=== PATIENT | male | born 1955 | race Caucasian/White ===

== ENCOUNTER 2018-01-26 14:53 | Inpatient (IN) | payer BC ==
[~2018-01-26] VITALS: Ht 193 cm; Wt 123.4 kg
[2018-01-26] VITALS (34 sets, daily range): BP systolic 87–151; BP diastolic 36–108
[2018-01-26] MEDS ORDERED: DILTIAZEM INJECTION 125 MG in NS (IVPB) 100 ML IV SCH (15:15)
[2018-01-26] MEDS ORDERED: ALPRAZolam 0.25 MG (XANAX) TAB PO PRN (15:15)
[2018-01-26] MEDS ORDERED: ACETAMINOPHEN 500 MG TAB (TYLENOL) PO PRN (15:15)
[2018-01-26] MEDS ORDERED: CALCIUM CARBONATE 500 MG (TUMS) TAB.CHEW PO PRN (15:15)
[2018-01-26] MEDS ORDERED: ONDANSETRON 4 MG/2 ML (SDV) Z0FRAN IVP PRN (15:15)
[2018-01-26] MEDS ORDERED: DOCUSATE SODIUM 100 MG (COLACE) CAP PO PRN (15:15)
--- OUTSIDE RECORDS SUMMARY | 2018-01-26 15:58 | XMS REPORT | Continuity of Care Document ---
Author Author [facility] Organization [facility] Address Unknown Phone Unavailable Allergies Active Description Code Type Severity Reaction Onset Reported/Identified Relationship to Patient Clinical Status Yes NO KNOWN DRUG ALLERGIES UNKNOWN NO KNOWN DRUG ALLERG Medications Medication Packaging Start Date Stop Date Route Dosage Sig DILTIAZEM BOLUS VIAL INJ 25 MG/5CC (CARDIZEM BOLUS VIAL) MG 01/26/2018 01/26/2018 ONCE&1403 DILTIAZEM BOLUS VIAL INJ 25 MG/5CC (CARDIZEM BOLUS VIAL) MG 01/26/2018 01/26/2018 ONCE&1412 Normal SALINE 0.9 % (NS 100cc) (plain bag) ml 01/26/2018 01/26/2018 ONCE&1418 ENOXAPARIN SYRINGE INJ 100 MG (LOVENOX SYRINGE) MG 01/26/2018 01/26/2018 ONCE&1500 Problems There is no data. Procedures There is no data. Results Test Result Range Thyroid Stimulating Hormone - 08/24/17 09:52 TSH 4.06 mIU/mL 0.32-5.00 EKG - 01/26/18 13:38 EKG Complete Thyroid Stimulating Hormone - 01/26/18 13:38 TSH 6.64 mIU/mL 0.32-5.00 Encounters ACCT No. Visit Date/Time Discharge Status Pt. Type Provider Facility Loc./Unit Complaint [id number] 09/12/2013 10:41:00 09/12/2013 23:59:59 CLS Outpatient [id number] 08/24/2017 09:52:00 08/24/2017 23:59:00 DIS Outpatient Amanda Dorman [id number] 01/26/2018 14:04:01 Document Registration [id number] 01/26/2018 13:30:00 Document Registration
[2018-01-26] MEDS ORDERED: CATHETER FLUSH 10 ML SYR IV PRN (16:00)
[2018-01-26] MEDS ORDERED: FLU QUADRIvalent (5+ YOA) 2018-2019 (AFLURIA) 0.5 ML IM ONE (16:45)
[2018-01-26 17:00] LABS: BASOPHILS % (AUTO) 0 % (0-10); EOSINOPHILS # (AUTO) 0.2 10^3/uL (0.0-0.3); EOSINOPHILS % (AUTO) 1 % (0-10); HEMATOCRIT 46 % (40-54); HEMOGLOBIN 15.2 G/DL (13.3-17.7); LYMPHOCYTES # (AUTO) 2.3 X 10^3 (1.0-4.0); LYMPHOCYTES % (AUTO) 16 % (12-44); MEAN CORPUSCULAR HEMOGLOBIN 28 PG (25-34); MEAN CORPUSCULAR HGB CONC 33 G/DL (32-36); MEAN CORPUSCULAR VOLUME 84 FL (80-99); MEAN PLATELET VOLUME 10.1 FL (7.4-10.4); MONOCYTES # (AUTO) 1.3 X 10^3 (0.0-1.0); MONOCYTES % (AUTO) 9 % (0-12); NEUTROPHILS # (AUTO) 10.6 X 10^3 (1.8-7.8); NEUTROPHILS % (AUTO) 73 % (42-75); PLATELET COUNT 294 10^3/uL (130-400); RED BLOOD COUNT 5.43 10^6/uL (4.35-5.85); RED CELL DISTRIBUTION WIDTH 13.6 % (10.0-14.5); WHITE BLOOD COUNT 14.4 10^3/uL (4.3-11.0)
[2018-01-26 17:16] LABS: ALANINE AMINOTRANSFERASE 27 U/L (0-55); ALBUMIN 4.1 GM/DL (3.2-4.5); ALKALINE PHOSPHATASE 95 U/L (40-136); BILIRUBIN,TOTAL 0.9 MG/DL (0.1-1.0); BUN/CREATININE RATIO 13; CALCIUM 9.5 MG/DL (8.5-10.1); CARBON DIOXIDE 23 MMOL/L (21-32); CHLORIDE 102 MMOL/L (98-107); CREATININE SERUM 1.08 MG/DL (0.60-1.30); GFR ESTIMATED > 60; GLUCOSE 109 MG/DL (70-105); POTASSIUM 4.3 MMOL/L (3.6-5.0); SODIUM 138 MMOL/L (135-145); TOTAL PROTEIN 7.2 GM/DL (6.4-8.2)
[2018-01-26 17:22] LABS: BAND NEUTROPHILS 0 %; BASOPHILS % (MANUAL) 0 %; EOSINOPHILS % (MANUAL) 1 %; LYMPHOCYTES % (MANUAL) 15 %; MONOCYTES % (MANUAL) 9 %; NEUTROPHILS % (MANUAL) 73 %; RBC MORPH NORMAL; REACTIVE LYMPHOCYTES 2 %
[2018-01-26] MEDS ORDERED: AMIODARONE 150 MG/3 ML (CORDARONE) AMP IV ONE ×2 (17:44→20:42)
[2018-01-26] MEDS ORDERED: D5W 100 ML IVPB 0 ML IV ONE (17:44)
[2018-01-26] MEDS ORDERED: AMIODARONE FOR BOLUS 150 MG in D5W 100 ML IVPB 100 ML IV NR (17:45)
[2018-01-26] MEDS: AMIODARONE INJECTION 450 MG in D5W IV SOLUTION (EXCEL) 250 ML IV SCH (18:11)
--- NOTE | 2018-01-26 18:33 | History & Physical-Hospitalist ---
History of Present Illness HPI/Chief Complaint CC: New onset atrial flutter HPI: This is a 62-year-old white male clinic patient of Dr. Dorman at [facility] who presented to ICU [address] [facility] due to new onset atrial flutter with consistent heart rate of 140. Apparently he's had fluttering in his chest before always a very brief episode not accompanied with chest pain or shortness of breath but on Tuesday he began feeling palpitations with chest pressure but he was having a chest cold and he went to bed on Tuesday could not get out of bed because of fatigue and shortness of breath and considering basketball season was about to start on Tuesday he went to the [facility] ER at Dr. Dorman's request and was found to have new onset atrial flutter. Dr. Coon has been consulted and Cardizem infusion has been unsuccessful so now we are currently changing over to an amiodarone drip. Currently he denies any shortness of breath no chest pain and overall feeling much better. His brother is at the bedside along with his . Source: patient, family, RN/MD Exam Limitations: no limitations Date Seen 01/26/18 Time Seen by a Provider: 18:30 Attending Physician Mena King DO PCP Mena King DO Referring Physician Date of Admission Jan 26, 2018 at 15:45 Home Medications & Allergies Home Medications Reviewed patient Home Medication Reconciliation performed by pharmacy medication reconciliations cdl service technician and/or nursing. Patients Allergies have been reviewed. Allergies Allergies Coded Allergies No Known Drug Allergies (Hpbqoscaud77/8/18) Past Homvuwj-Jlagny-Eaoyqb Hx Past Med/Social Hx: Reviewed Nursing Past Med/Soc Hx, Reviewed and Corrections made Patient Social History Marrital Status: Employed/Student: employed Alcohol Use: Occasionally Uses Number of Drinks Today: 0 Alcohol Beverage of Choice: Beer Recreational Drug Use: No Smoking Status: Never a Smoker Physical Abuse Screen: No Sexual Abuse: No Recent Foreign Travel: No Contact w/other who traveled: No Recent Hopitalizations: No Recent Infectious Disease Expo: No Seasonal Allergies Seasonal Allergies: No Past Medical History Hearing Impairment: Hard of Hearing Cancer: Prostate Did You Recieve Any Treatments: Yes What Type of Treatment Did You: Surgical Intervention History of Blood Disorders: No Family History FH: multiple sclerosis G8 BROTHER Myocardial infarction 19 FATHER UNCLE Neoplasm G8 BROTHER Review of Systems Constitutional: see HPI, malaise, weakness EENTM: no symptoms reported Respiratory: dyspnea on exertion, short of breath Cardiovascular: chest pain, palpitations Gastrointestinal: no symptoms reported Genitourinary: no symptoms reported Musculoskeletal: no symptoms reported Skin: no symptoms reported Psychiatric/Neurological: No Symptoms Reported All Other Systems Reviewed Negative Unless Noted: Yes Physical Exam Physical Exam Vital Signs Vital Signs - First Documented 01/26/18 01/26/18 01/26/18 15:50 15:55 16:00 Temp 100.0 Pulse 144 Resp 23 B/P (MAP) 141/97 (112) Pulse Ox 95 O2 Delivery Room Air Capillary Refill : Height, Weight, BMI Height: 6'4.00" Weight: 274lbs. 4.0oz. 124.421948ib; 33.4 BMI Method: General Appearance: No Apparent Distress, WD/WN Eyes: Bilateral Eye Normal Inspection, Bilateral Eye PERRL HEENT: PERRL/EOMI, TMs Normal, Normal ENT Inspection, Pharynx Normal Neck: Full Range of Motion, Normal Inspection, Non Tender, Supple, Carotid Bruit Respiratory: Chest Non Tender, Lungs Clear, Normal Breath Sounds, No Accessory Muscle Use, No Respiratory Distress Cardiovascular: No Edema, No Gallop, No JVD, No Murmur, Normal Peripheral Pulses, Irregularly Irregular, Tachycardia Gastrointestinal: Normal Bowel Sounds, No Organomegaly, No Pulsatile Mass, Non Tender, Soft Back: Normal Inspection, No CVA Tenderness, No Vertebral Tenderness Extremity: Normal Capillary Refill, Normal Inspection, Normal Range of Motion, Non Tender, No Calf Tenderness, No Pedal Edema Neurologic/Psychiatric: Alert, Oriented x3, No Motor/Sensory Deficits, Normal Mood/Affect Skin: Normal Color, Warm/Dry Lymphatic: No Adenopathy Results Results/Procedures Labs Laboratory Tests 01/26/18 16:52 Patient resulted labs reviewed. Assessment/Plan Admission Diagnosis Assessment: New onset atrial flutter failed Cardizem infusion now on amiodarone drip History of prostate cancer Presbycusis Plan: Amiodarone drip Appreciate Dr Coon's help Monitor closely Admission Status: Inpatient Order (span 2 midnights) Reason for Inpatient Admission: New onset atrial flutter will require 3 days of antiarrhythmics for control and possible cardioversion Diagnosis/Problems Diagnosis/Problems (1) Atrial flutter Status: Acute Qualifiers: Atrial flutter type: typical Qualified Codes: I48.3 - Typical atrial flutter Clinical Quality Measures DVT/VTE Risk/Contraindication: Risk Factor Score Per Nursin RFS Level Per Nursing on Admit: 3=High MENA KING DO Jan 26, 2018 18:33
[2018-01-26] MEDS ORDERED: MAGNESIUM 1 GM/100 ML IVPB 200 ML IV ONE (20:40)
[2018-01-26] MEDS ORDERED: D5W 100 ML IVPB 100 ML IV ONE (20:41)
[2018-01-26] MEDS ORDERED: AMIODARONE FOR BOLUS 150 MG in D5W 100 ML IVPB 100 ML IV ONE (21:00)
[2018-01-26] MEDS: APIXABAN 5 MG (ELIQUIS) TABLET PO SCH (21:08)
[2018-01-26] MEDS: CATHETER FLUSH 10 ML SYR IV SCH (21:14)
[2018-01-26] MEDS: MAGNESIUM 1 GM/100 ML IVPB 100 ML IV SCH ×2 (21:26→22:22)
[2018-01-27] VITALS (34 sets, daily range): BP systolic 99–145; BP diastolic 70–117
[2018-01-27] MEDS: AMIODARONE INJECTION 450 MG in D5W IV SOLUTION (EXCEL) 250 ML IV SCH (03:21)
[2018-01-27 03:58] LABS: BASOPHILS # (AUTO) 0.1 10^3/uL (0.0-0.1); BASOPHILS % (AUTO) 0 % (0-10); EOSINOPHILS # (AUTO) 0.2 10^3/uL (0.0-0.3); EOSINOPHILS % (AUTO) 2 % (0-10); HEMATOCRIT 44 % (40-54); HEMOGLOBIN 14.6 G/DL (13.3-17.7); LYMPHOCYTES % (AUTO) 18 % (12-44); MEAN CORPUSCULAR HEMOGLOBIN 28 PG (25-34); MEAN CORPUSCULAR HGB CONC 33 G/DL (32-36); MEAN CORPUSCULAR VOLUME 84 FL (80-99); MEAN PLATELET VOLUME 10.9 FL (7.4-10.4); MONOCYTES # (AUTO) 1.4 X 10^3 (0.0-1.0); MONOCYTES % (AUTO) 12 % (0-12); NEUTROPHILS # (AUTO) 7.6 X 10^3 (1.8-7.8); NEUTROPHILS % (AUTO) 68 % (42-75); PLATELET COUNT 280 10^3/uL (130-400); RED BLOOD COUNT 5.21 10^6/uL (4.35-5.85); RED CELL DISTRIBUTION WIDTH 13.7 % (10.0-14.5); WHITE BLOOD COUNT 11.2 10^3/uL (4.3-11.0)
[2018-01-27 04:31] LABS: ALANINE AMINOTRANSFERASE 23 U/L (0-55); ALBUMIN 3.7 GM/DL (3.2-4.5); ALKALINE PHOSPHATASE 91 U/L (40-136); BILIRUBIN,TOTAL 0.6 MG/DL (0.1-1.0); BUN/CREATININE RATIO 16; CALCIUM 8.9 MG/DL (8.5-10.1); CARBON DIOXIDE 23 MMOL/L (21-32); CHLORIDE 104 MMOL/L (98-107); CREATININE SERUM 0.96 MG/DL (0.60-1.30); GFR ESTIMATED > 60; GLUCOSE 102 MG/DL (70-105); POTASSIUM 4.2 MMOL/L (3.6-5.0); SODIUM 138 MMOL/L (135-145); TOTAL PROTEIN 6.4 GM/DL (6.4-8.2)
[2018-01-27] MEDS: CATHETER FLUSH 10 ML SYR IV SCH ×2 (04:32→14:04)
[2018-01-27 04:35] LABS: MAGNESIUM 2.2 MG/DL (1.8-2.4)
[2018-01-27] MEDS ORDERED: POTASSIUM CL 10MEQ/50ML IVPB 50 ML IV SCH (06:00)
[2018-01-27] MEDS ORDERED: KCL 20 MEQ TAB (K-DUR) PO SCH (06:00)
[2018-01-27] MEDS ORDERED: MAGNESIUM 1 GM/100 ML IVPB 100 ML IV SCH (06:00)
--- NOTE | 2018-01-27 06:12 | Pulmonary Consultation ---
History of Present Illness History of Present Illness Date of Consultation 01/27/18 06:10 Date of Admission Allergies and Home Medications Allergies Coded Allergies: No Known Drug Allergies (Unverified , 01/26/18) Past Jevbjcr-Yxxrrj-Nqhyma Hx Past Med/Social Hx: Reviewed Nursing Past Med/Soc Hx, Reviewed and Corrections made Patient Social History Alcohol Use: Occasionally Uses Number of Drinks Today: 0 Alcohol Beverage of Choice: Beer Recreational Drug Use: No Smoking Status: Never a Smoker Recent Foreign Travel: No Contact w/Someone Who Travel: No Recent Infectious Disease Expo: No Recent Hopitalizations: No Seasonal Allergies Seasonal Allergies: No Past Medical History Surgeries: Yes Respiratory: No Cardiac: No Neurological: No Genitourinary: No Gastrointestinal: No Musculoskeletal: No Endocrine: No HEENT: Yes Hearing Impairment: Hard of Hearing Cancer: Yes Prostate Did You Recieve Any Treatments: Yes What Type of Treatment Did You: Surgical Intervention Psychosocial: No Integumentary: No Blood Disorders: No Family Medical History FH: multiple sclerosis G8 BROTHER Myocardial infarction 19 FATHER UNCLE Neoplasm G8 BROTHER Sepsis Event Evaluation Height, Weight, BMI Height: 6'4.00" Weight: 274lbs. 4.0oz. 124.341667ec; 33.4 BMI Method: Exam Exam Vital Signs Date Time Temp Pulse Resp B/P (MAP) Pulse Ox O2 Delivery O2 Flow Rate FiO2 01/27/18 05:30 125 19 111/81 (91) 94 Room Air 01/27/18 05:15 125 19 106/75 (85) 92 Room Air 01/27/18 05:00 126 28 105/76 (86) 92 Room Air 01/27/18 04:45 128 24 108/83 (91) 95 Room Air 01/27/18 04:30 122 21 106/80 (89) 95 Room Air 01/27/18 04:15 121 18 116/93 (101) 95 Room Air 01/27/18 04:00 Room Air 01/27/18 04:00 121 21 119/92 (101) 97 Room Air 01/27/18 04:00 97.2 01/27/18 03:45 120 17 114/97 (103) 95 Room Air 01/27/18 03:30 125 14 127/91 (103) 95 Room Air 01/27/18 03:15 122 22 127/117 (120) 95 Room Air 01/27/18 03:00 126 26 120/97 (105) 94 Room Air 01/27/18 02:45 86 13 112/81 (91) 93 Room Air 01/27/18 02:30 110 9 113/89 (97) 92 Room Air 01/27/18 02:15 123 22 125/96 (106) 94 Room Air 01/27/18 02:00 122 25 118/92 (101) 94 Room Air 01/27/18 01:45 129 25 118/90 (99) 95 Room Air 01/27/18 01:30 128 26 111/83 (92) 94 Room Air 01/27/18 01:15 123 24 116/86 (96) 94 Room Air 01/27/18 01:00 94 01/27/18 01:00 94 19 109/84 (92) 94 Room Air 01/27/18 00:45 103 25 110/75 (87) 94 Room Air 01/27/18 00:30 93 19 103/72 (82) 93 Room Air 01/27/18 00:15 128 19 107/80 (89) 94 Room Air 01/27/18 00:00 Room Air 01/27/18 00:00 129 20 99/77 (84) 93 Room Air 01/27/18 00:00 99.1 01/26/18 23:45 125 17 96/73 (81) 93 Room Air 01/26/18 23:30 112 24 111/85 (94) 90 Room Air 01/26/18 23:15 103 17 104/78 (87) 93 Room Air 01/26/18 23:00 129 24 103/83 (90) 92 Room Air 01/26/18 22:45 129 28 87/61 (70) 92 Room Air 01/26/18 22:30 129 19 95/73 (80) 92 Room Air 01/26/18 22:15 129 28 98/80 (86) 92 Room Air 01/26/18 22:00 130 27 105/83 (90) 93 Room Air 01/26/18 21:45 130 24 118/90 (99) 95 Room Air 01/26/18 21:30 130 27 148/79 (102) 94 Room Air 01/26/18 21:15 130 26 113/92 (99) 95 Room Air 01/26/18 21:00 134 19 104/77 (86) 94 Room Air 01/26/18 20:45 135 26 101/72 (82) 94 Room Air 01/26/18 20:30 134 18 103/66 (78) 92 Room Air 01/26/18 20:15 137 17 102/90 (94) 93 Room Air 01/26/18 20:00 Room Air 01/26/18 20:00 138 21 126/94 (105) 93 Room Air 01/26/18 19:45 135 18 118/36 (63) 94 Room Air 01/26/18 19:30 140 21 120/98 (105) 96 Room Air 01/26/18 19:15 138 17 146/104 (118) 94 Room Air 01/26/18 19:05 99.3 80 16 117/73 (88) 94 Room Air 01/26/18 19:00 134 26 125/89 (101) 95 Room Air 01/26/18 18:59 135 01/26/18 18:45 134 22 126/96 (106) 96 Room Air 01/26/18 18:30 137 14 151/102 (118) 96 Room Air 01/26/18 18:15 141 25 145/106 (119) 95 Room Air 01/26/18 18:00 142 48 128/98 (108) 93 Room Air 01/26/18 17:45 142 18 97 Room Air 01/26/18 17:45 142 18 139/108 (118) 97 Room Air 01/26/18 17:30 141 19 131/104 (113) 96 Room Air 01/26/18 17:15 141 11 119/97 (104) Room Air 01/26/18 17:00 140 28 94/57 (69) Room Air 01/26/18 16:45 141 28 128/105 (113) 97 Room Air 01/26/18 16:35 140 18 130/102 (111) 98 Room Air 01/26/18 16:30 140 26 120/100 (107) 98 Room Air 01/26/18 16:26 99.4 01/26/18 16:15 140 13 116/88 (97) 98 Room Air 01/26/18 16:00 141 23 141/97 (112) 95 Room Air 01/26/18 15:55 144 01/26/18 15:50 100.0 01/26/18 15:45 96 Nasal Cannula 2.00 I & O 01/27/18 07:00 Intake Total 905 ml Output Total 1725 ml Balance -820 ml Height & Weight Height: 6'4.00" Weight: 274lbs. 4.0oz. 124.690081dg; 33.4 BMI Method: General Appearance: No Apparent Distress, WD/WN HEENT: PERRL/EOMI, TMs Normal, Normal ENT Inspection, Pharynx Normal Neck: Full Range of Motion, Normal Inspection, Non Tender, Supple, Carotid Bruit Respiratory: Chest Non Tender, Lungs Clear, Normal Breath Sounds, No Accessory Muscle Use, No Respiratory Distress Cardiovascular: No Edema, No Gallop, No JVD, No Murmur, Normal Peripheral Pulses, Irregularly Irregular, Tachycardia Extremity: Normal Capillary Refill, Normal Inspection, Normal Range of Motion, Non Tender, No Calf Tenderness, No Pedal Edema Neurologic/Psychiatric: Alert, Oriented x3, No Motor/Sensory Deficits, Normal Mood/Affect Skin: Normal Color, Warm/Dry Lymphatic: No Adenopathy Results Lab Laboratory Tests 01/26/18 16:52 01/27/18 02:55 Assessment/Plan Assessment/Plan New onset atrial flutter -failed Cardizem infusion now on amiodarone drip -Dr. Coon is following History of prostate cancer Presbycusis RUSTY PETTY DO Jan 27, 2018 06:12
--- NOTE | 2018-01-27 07:06 | Diagnostic Imaging Report ---
INDICATION: Heart disease and dyspnea. No prior examination available for comparison. FINDINGS: The heart size is normal. There are patchy bibasilar infiltrates. There is mild venous congestion. There is no pleural effusion or pneumothorax. Mediastinum is unremarkable. IMPRESSION: Patchy bibasilar infiltrates. Mild venous congestion. Dictated by: Dictated on workstation # [id number]
[2018-01-27] MEDS ORDERED: DILTIAZEM 120 MG (CARDIZEM CD) CAP PO SCH (09:00)
[2018-01-27] MEDS ORDERED: MULT-406 PO (09:08)
[2018-01-27] MEDS: APIXABAN 5 MG (ELIQUIS) TABLET PO SCH (09:42)
--- NOTE | 2018-01-27 10:29 | Progress Note-Hospitalist ---
REYNA HINOJOSA DO 01/27/18 1029: Subjective HPI/CC On Admission Date Seen by Provider: Jan 27, 2018 Time Seen by Provider: 10:15 CC: New onset atrial flutter HPI: This is a 62-year-old white male clinic patient of Dr. Dorman at [facility] who presented to ICU 7 from ER at [facility] due to new onset atrial flutter with consistent heart rate of 140. Apparently he's had fluttering in his chest before always a very brief episode not accompanied with chest pain or shortness of breath but on Tuesday he began feeling palpitations with chest pressure but he was having a chest cold and he went to bed on Tuesday could not get out of bed because of fatigue and shortness of breath and considering basketball season was about to start on Tuesday he went to the [facility] ER at Dr. Dorman's request and was found to have new onset atrial flutter. Dr. Coon has been consulted and Cardizem infusion has been unsuccessful so now we are currently changing over to an amiodarone drip. Currently he denies any shortness of breath no chest pain and overall feeling much better. His brother is at the bedside along with his . Subjective/Events-last exam Patient did well overnight Amio drip maintained and HR continued to increase to 140's at times Cardioversion planned for 1100 Objective Exam Vital Signs Vital Signs Date Time Temp Pulse Resp B/P (MAP) Pulse Ox O2 Delivery O2 Flow Rate FiO2 01/27/18 17:13 85 11 124/86 96 Room Air 2.00 01/27/18 16:15 97.8 Capillary Refill : General Appearance: No Apparent Distress, WD/WN Respiratory: Chest Non Tender, Lungs Clear, Normal Breath Sounds, No Accessory Muscle Use, No Respiratory Distress Cardiovascular: No Edema, No Gallop, No JVD, No Murmur, Normal Peripheral Pulses, Irregularly Irregular, Tachycardia Neurologic/Psychiatric: Alert, Oriented x3, No Motor/Sensory Deficits, Normal Mood/Affect Results/Procedures Lab Laboratory Tests 01/27/18 02:55 Patient resulted labs reviewed. Assessment/Plan Assessment and Plan Assess & Plan/Chief Complaint AF w/RVR Prostate cancer hx Diagnosis/Problems Diagnosis/Problems (1) Atrial flutter Status: Acute Qualifiers: Atrial flutter type: typical Qualified Codes: I48.3 - Typical atrial flutter Clinical Quality Measures DVT/VTE Risk/Contraindication: Risk Factor Score Per Nursin RFS Level Per Nursing on Admit: 3=High IZZY VILLA MED STUDENT 01/27/18 1127: Subjective Subjective/Events-last exam Patient is resting comfortably and reports no pain He is in good spirits and inquisitive of his condition Shortness of breath has resolved Patient is not experiencing chest discomfort Objective Exam General Appearance: No Apparent Distress, WD/WN Respiratory: Chest Non Tender, Lungs Clear, Normal Breath Sounds, No Accessory Muscle Use, No Respiratory Distress Cardiovascular: No Edema, No Gallop, No JVD, No Murmur, Tachycardia Neurologic/Psychiatric: Alert, Oriented x3, No Motor/Sensory Deficits, Normal Mood/Affect Skin: Normal Color, Warm/Dry Assessment/Plan Assessment and Plan Assess & Plan/Chief Complaint Assessment: 1) New onset atrial flutter Plan: 1) Monitor in the ICU 2) 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
[2018-01-27] MEDS ORDERED: LIDOCAINE 2% VISCOUS 15 ML UDC PO ONE ×2 (10:30→11:45)
[2018-01-27] MEDS ORDERED: NS IV 500 ML 500 ML IV SCH ×2 (10:30→11:45)
[2018-01-27] MEDS ORDERED: proPOfol 200 MG/20 ML (DIPRIVAN) VIAL IV ONE (10:51)
[2018-01-27] MEDS ORDERED: MIDAZOLAM 2 MG/2 ML (VERSED) VIAL ONE (10:51)
[2018-01-27] MEDS ORDERED: LIDOCAINE 2% VISCOUS 15 ML UDC ONE (11:06)
--- NOTE | 2018-01-27 11:34 | Consultation-Cardiology ---
HPI-Cardiology Cardiology Consultation: Date of Consultation 01/27/18 Date of Admission Attending Physician Mena King DO Admitting Physician Mena King DO Consulting Physician Theron COON MD HPI: Time Seen by a Provider: 10:45 Chief Complaint: Chest pain, shortness of breath, fatigue This is a 62-year-old gentleman who is a patient of Dr. Dorman in [facility]. He has history of hypertension. He denies diabetes, hyperlipidemia, CAD. He denies active smoking. He does have family history of VA in the father and pacemaker in the mother. He presented to Dr. Dorman's office with complains of chest pain, shortness of breath and fatigue at least since Tuesday which was 2 days ago. He was found to be in rapid tachycardia and therefore sent to the ER. In the ER he was found to have atrial flutter with rapid ventricular rate. His rate was not responsive to Cardizem bolus and infusion. He was therefore transferred to our hospital for further management. Review of Systems-Cardiology Review of Systems Constitutional: As described under HPI; No As described under HPI, No no symptoms reported, No chills, No fever, No lightheadedness; tiredness Eyes: No As described under HPI, No no symptoms reported, No blindness, No blurred vision, No contact lenses, No drainage, No decreased acuity, No foreign body sensation, No pain, No vision change Ears/Nose/Throat: No As described under HPI, No no symptoms reported, No chronic hearing loss, No ear discharge, No ear pain, No nasal drainage, No ulcerations Respiratory: No no symptoms reported; As described under HPI; No As described under HPI, No cough, No orthopnea; shortness of breath; No SOB with excertion Cardiovascular: No no symptoms reported; As described under HPI; No As described under HPI; chest pain; No edema, No irregular heart rate, No lightheadedness, No palpitations Gastrointestinal: No no symptoms reported, No As described under HPI, No abdomen distended, No abdominal pain, No blood streaked bowels, No constipation , No diarrhea, No nausea, No vomiting, No stool coloration changes Genitourinary: No As described under HPI, No burning, No dysuria, No discharge , No frequency, No flank pain, No hematuria, No urgency Musculoskeletal: No no symptoms reported, No As describe under HPI, No back pain, No gout, No joint pain, No joint swelling, No muscle pain, No muscle stiffness, No neck pain, No other Skin: No no symptoms reported, No As described under HPI, No change in color, No change in hair/nails, No dryness, No lesions, No lumps, No rash, No other, No skin related problems, No ulcerations, No rash on exposed areas, No ulcerations on exposed areas Psychiatric/Neurological: No anxiety, No depression, No seizure, No focal weakness, No syncope Hematologic: No no symptoms reported, No As described under HPI, No anemia, No blood clots, No easy bleeding, No easy bruising, No swollen glands, No other, No bleeding abnormalities All Other Systems Reviewed Negative Unless Noted: Yes [id number]-[id number] Hx Patient Social History Marrital Status: Employed/Student: employed Alcohol Use: Occasionally Uses Recreational Drug Use: No Smoking Status: Never a Smoker Recent Foreign Travel: No Recent Infectious Disease Expo: No Physical Abuse Screen: No Sexual Abuse: No Past Medical History PMH As described under Assessment. Family Medical History Family History: FH: multiple sclerosis G8 BROTHER Myocardial infarction 19 FATHER UNCLE Neoplasm G8 BROTHER Allergies and Home Medications Allergies Coded Allergies: No Known Drug Allergies (Unverified , 01/26/18) Home Medications Multivitamin with Minerals 1 Each Tablet, 1 TAB PO DAILY, (Reported) Patient Home Medication List Home Medication List Reviewed: Yes Physical Exam-Cardiology Physical Exam Vital Signs/I&O 01/26/18 01/27/18 01/27/18 01/27/18 23:45 00:00 00:00 00:00 Temp 99.1 Pulse 125 129 Resp 17 20 B/P (MAP) 96/73 (81) 99/77 (84) Pulse Ox 93 93 O2 Delivery Room Air Room Air Room Air 01/27/18 01/27/18 01/27/18 01/27/18 00:15 00:30 00:45 01:00 Pulse 128 93 103 94 Resp 19 19 25 19 B/P (MAP) 107/80 (89) 103/72 (82) 110/75 (87) 109/84 (92) Pulse Ox 94 93 94 94 O2 Delivery Room Air Room Air Room Air Room Air 01/27/18 01/27/18 01/27/18 01/27/18 01:00 01:15 01:30 01:45 Pulse 94 123 128 129 Resp 25 B/P (MAP) 116/86 (96) 111/83 (92) 118/90 (99) Pulse Ox 94 94 95 O2 Delivery Room Air Room Air Room Air 01/27/18 01/27/18 01/27/18 01/27/18 02:00 02:15 02:30 02:45 Pulse 122 123 110 86 Resp 22 9 13 B/P (MAP) 118/92 (101) 125/96 (106) 113/89 (97) 112/81 (91) Pulse Ox 94 94 92 93 O2 Delivery Room Air Room Air Room Air Room Air 01/27/18 01/27/18 01/27/18 01/27/18 03:00 03:15 03:30 03:45 Pulse 126 122 125 120 Resp 14 17 B/P (MAP) 120/97 (105) 127/117 (120) 127/91 (103) 114/97 (103) Pulse Ox 94 95 95 95 O2 Delivery Room Air Room Air Room Air Room Air 01/27/18 01/27/18 01/27/18 01/27/18 04:00 04:00 04:00 04:15 Temp 97.2 Pulse 121 121 Resp 18 B/P (MAP) 119/92 (101) 116/93 (101) Pulse Ox 97 95 O2 Delivery Room Air Room Air Room Air 01/27/18 01/27/18 01/27/18 01/27/18 04:30 04:45 05:00 05:15 Pulse 122 128 126 125 Resp 19 B/P (MAP) 106/80 (89) 108/83 (91) 105/76 (86) 106/75 (85) Pulse Ox 95 95 92 92 O2 Delivery Room Air Room Air Room Air Room Air 01/27/18 01/27/18 01/27/18 01/27/18 05:30 05:45 06:00 07:00 Pulse 125 124 123 122 Resp 18 B/P (MAP) 111/81 (91) 103/73 (83) 104/89 (94) 134/98 (110) Pulse Ox 94 93 92 94 O2 Delivery Room Air Room Air Room Air Room Air 01/27/18 01/27/18 01/27/18 01/27/18 07:00 07:00 08:00 08:00 Temp 98.0 Pulse 112 130 Resp 21 B/P (MAP) 121/90 (100) Pulse Ox 97 O2 Delivery Room Air Room Air 01/27/18 01/27/18 01/27/18 09:00 10:00 11:00 Pulse 126 130 126 Resp 24 31 16 B/P (MAP) 145/102 (116) 105/79 (88) 126/101 (109) Pulse Ox 94 98 98 O2 Delivery Room Air Room Air Room Air 01/27/18 00:00 Intake Total 646 ml Output Total 1125 ml Balance -479 ml Capillary Refill : Constitutional: appears stated age, AAO x 3; No apparent distress; well- developed, well-nourished HEENT: PERRL; No normal ENT inspection, No TMs normal, No pharynx normal, No scleral icterus (R), No scleral icterus (L), No pale conjunctivae (R), No pale conjunctivae (L), No photophobia, No TM abnormal (R), No TM abnormal (L), No pharyngeal erythema, No tonsillar exudate, No other, No discharge, No EOMI; hearing is well preserved; No hard of hearing; oral hygience is good; No ulceration, No xanthelasmas are seen Neck: No carotid bruit; carotid pulses are 2 + bilaterally Respiratory: No accessory muscle use, No respiratory distress, No chest tender , No chest expansion is symmetric; chest is bilaterally symmetric; No lungs clear to percussion; lungs clear to auscultation; No crackles, No rhonchi, No rales, No stridor, No wheezing, No pleural rub, No other Cardiovascular: No regular rate-rhythm; irregularly irregular; No extra beats, No parasternal heave is noted, No JVD, No edema, No bradycardia; tachycardia; No point of maximal impulse, No cardiac thrills are palpable, No S1 and S2, No gallop/S3, No gallop/S4, No diastolic murmur, No systolic murmur, No friction rub, No click, No other Gastrointestinal: No tender, No soft, No round, No distended, No pulsatile mass , No organomegaly, No guarding, No rebound, No tenderness, No hernia, No mass, No audible bowel sounds, No abnormal bowel sounds, No abdominal bruits, No spleenomegaly, No other Rectal: deferred Extremities: No normal range of motion, No non-tender, No normal inspection, No pedal edema, No calf tenderness, No normal capillary refill, No pelvis stable , No calf tenderness, No inflammation, No pedal edema, No slow capillary refill , No swelling, No other, No abrasion, No clubbing, No cyanosis, No ecchymosis, No laceration, No no lower extremity edema bilateral, No significant edema, No tenderness, No wound Neurologic/Psychiatric: no motor/sensory deficits, alert, normal mood/affect, oriented x 3, power is 5/5 both on sides Skin: No normal color, No warm/dry, No cyanosis, No cool, No diaphoresis, No damp, No ecchymosis, No jaundice, No mottled, No pallor, No rash, No tattoos/ piercings, No ulcerations, No rash on exposed areas, No ulcerations on exposed areas, No other Data Review Labs Laboratory Tests 01/26/18 16:52: White Blood Count 14.4H, Red Blood Count 5.43, Hemoglobin 15.2, Hematocrit 46, Mean Corpuscular Volume 84, Mean Corpuscular Hemoglobin 28, Mean Corpuscular Hemoglobin Concent 33, Red Cell Distribution Width 13.6, Platelet Count 294, Mean Platelet Volume 10.1, Neutrophils (%) (Auto) 73, Lymphocytes (%) (Auto) 16 , Monocytes (%) (Auto) 9, Eosinophils (%) (Auto) 1, Basophils (%) (Auto) 0, Neutrophils # (Auto) 10.6H, Lymphocytes # (Auto) 2.3, Monocytes # (Auto) 1.3H, Eosinophils # (Auto) 0.2, Basophils # (Auto) 0.0, Neutrophils % (Manual) 73, Lymphocytes % (Manual) 15, Monocytes % (Manual) 9, Eosinophils % (Manual) 1, Basophils % (Manual) 0, Band Neutrophils 0, Reactive Lymphocytes 2, Blood Morphology Comment NORMAL, Sodium Level 138, Potassium Level 4.3, Chloride Level 102, Carbon Dioxide Level 23, Anion Gap 13, Blood Urea Nitrogen 14, Creatinine 1.08, Estimat Glomerular Filtration Rate > 60, BUN/Creatinine Ratio 13, Glucose Level 109H, Calcium Level 9.5, Corrected Calcium 9.4, Total Bilirubin 0.9, Aspartate Amino Transf (AST/SGOT) 17, Alanine Aminotransferase ( ALT/SGPT) 27, Alkaline Phosphatase 95, Total Protein 7.2, Albumin 4.1 01/27/18 02:55: White Blood Count 11.2H, Red Blood Count 5.21, Hemoglobin 14.6, Hematocrit 44, Mean Corpuscular Volume 84, Mean Corpuscular Hemoglobin 28, Mean Corpuscular Hemoglobin Concent 33, Red Cell Distribution Width 13.7, Platelet Count 280, Mean Platelet Volume 10.9H, Neutrophils (%) (Auto) 68, Lymphocytes (%) (Auto) 18 , Monocytes (%) (Auto) 12, Eosinophils (%) (Auto) 2, Basophils (%) (Auto) 0, Neutrophils # (Auto) 7.6, Lymphocytes # (Auto) 2.0, Monocytes # (Auto) 1.4H, Eosinophils # (Auto) 0.2, Basophils # (Auto) 0.1, Sodium Level 138, Potassium Level 4.2, Chloride Level 104, Carbon Dioxide Level 23, Anion Gap 11, Blood Urea Nitrogen 15, Creatinine 0.96, Estimat Glomerular Filtration Rate > 60, BUN/ Creatinine Ratio 16, Glucose Level 102, Calcium Level 8.9, Corrected Calcium 9.1 , Total Bilirubin 0.6, Aspartate Amino Transf (AST/SGOT) 15, Alanine Aminotransferase (ALT/SGPT) 23, Alkaline Phosphatase 91, Total Protein 6.4, Albumin 3.7, Phosphorus Level 4.0, Magnesium Level 2.2 ECG Impression ECG Comment Typical atrial flutter with rapid ventricular rate. A/P-Cardiology Assessment/Admission Diagnosis Typical atrial flutter with rapid ventricular rate, Hypertension, Possible sleep apnea, Shortness of breath, Chest pain Plan Typical atrial flutter with rapid ventricular rate: Patient was given amiodarone bolus and IV infusion overnight and Cardizem infusion. Patient is refractory to amiodarone infusion and continues to be in symptomatic typical atrial flutter. Transesophageal echocardiogram assisted cardioversion is recommended. I discussed at length with the patient and about pathophysiology of atrial flutter, diagnostic modalities, stroke prevention, rhythm control, advanced therapies including EP study and ablation. I discussed the various steps that we will take in treating this patient which includes rate control with Cardizem and Eliquis for oral anticoagulation. Transesophageal echocardiogram to rule out left atrium/left atrial appendage thrombus. We will then proceed with cardioversion. If successful the patient will be discharged on Eliquis and Cardizem and follow up in office in 7-10 days. We will schedule electrophysiology study and typical atrial flutter ablation in the next 2-3 weeks. All the risks and complications of the procedure was discussed at length. I also discussed at length about the risks and complication associated with transesophageal echocardiogram assisted cardioversion especially stroke. The patient will continue Eliquis and I did discuss the risk benefit ratio of Eliquis as far as stroke prevention and the risk of bleeding is concerned. The patient may have sleep apnea and will therefore require a sleep study as an outpatient. Hypertension: Will switch to Cardizem. Chest pain: Patient had a nuclear stress test more than 6 months ago which according to the patient was not abnormal. He may require another nuclear stress test in the near future. Shortness of breath: No evidence of congestive heart failure. Patient is euvolemic. Shortness of breath is likely due to atrial flutter with rapid ventricular rate. I will recommend an echocardiogram after cardioversion. Thank you for your consultation. Please call me if you have any questions. Stacey Coon MD, FACP, FACC, FSCAI, FHRS, CCDS Interventional Cardiology Cardiac Electrophysiology Vascular Medicine and Endovascular Interventions Clinical Quality Measures DVT/VTE Risk/Contraindication: Risk Factor Score Per Nursin RFS Level Per Nursing on Admit: 3=High Theron COON MD Jan 27, 2018 11:34 am
--- NOTE | 2018-01-27 11:36 | Cardioversion ---
Cardioversion PROCEDURE PHYSICIAN: Stacey Coon MD DATE OF PROCEDURE: 01/27/18 DIRECT EXTERNAL ELECTRICAL CARDIOVERSION: Indications: Typical atrial flutter with rapid ventricular rate Preoperative diagnoses: Typical atrial flutter with rapid ventricular rate Postoperative diagnosis: Sinus rhythm, Successful Electrical Cardioversion History: This is a 62-year-old gentleman with complains of shortness of breath, chest pain, fatigue and was found to be in typical atrial flutter with rapid ventricular rate. He was refractory to overnight IV amiodarone infusion as well as Cardizem infusion. He was scheduled for transesophageal echocardiogram assisted cardioversion. Anesthesia: By Anesthesia services Complications: None Specimen: None Contrast: 0 Flouroscopy: none Procedure Details: The patient was brought the landscaping and groundskeeping laborer after informed consent was taken, all the risks and complications were explained including the risk of stroke. Electrical cardioversion was carried out with anesthesia support with propofol. 200 joules of synchronized shock was delivered through external patches which promptly restored sinus rhythm. The patient tolerated the procedure well. Conclusions: 1.Successful Cardioversion. 2.Continue oral anticoagulation and rate controlling agent. 3.Follow up in office in 7-10 days. Stacey Coon MD, FHRS, CCDS Cardiac Electrophysiology Theron COON MD Jan 27, 2018 11:36 am
[2018-01-27] MEDS ORDERED: DILT120C63 PO (12:11)
[2018-01-27] MEDS ORDERED: APIX5TAB PO (12:11)
--- NOTE | 2018-01-27 12:12 | Discharge Summary-Hospitalist ---
Diagnosis/Chief Complaint Date of Admission Jan 26, 2018 at 15:45 Date of Discharge Discharge Date: Jan 27, 2018 Admission Diagnosis Assessment: New onset atrial flutter failed Cardizem infusion now on amiodarone drip History of prostate cancer Presbycusis Plan: Amiodarone drip Appreciate Dr Coon's help Monitor closely Discharge Diagnosis (1) Atrial flutter Status: Resolved (2) Anticoagulant prescribed at discharge Status: Acute (3) Atrial fibrillation status post cardioversion Status: Acute Discharge Summary Discharge Physical Exam Allergies: Coded Allergies: No Known Drug Allergies (Unverified , 01/26/18) Vitals & I&Os Vital Signs Date Time Temp Pulse Resp B/P (MAP) Pulse Ox O2 Delivery O2 Flow Rate FiO2 01/27/18 17:13 85 11 124/86 96 Room Air 2.00 01/27/18 16:15 97.8 General Appearance: No Apparent Distress, WD/WN Respiratory: Chest Non Tender, Lungs Clear, Normal Breath Sounds, No Accessory Muscle Use, No Respiratory Distress Cardiovascular: Regular Rate, Rhythm, No Edema, No Gallop, No JVD, No Murmur, Normal Peripheral Pulses Neurologic/Psychiatric: Alert, Oriented x3, No Motor/Sensory Deficits, Normal Mood/Affect Hospital Course Hospital course: patient had a brief hospital course after transferring to [facility] due to new onset atrial flutter. Pt was placed on Cardizem without success so he was changed to Amiodarone with improved success but still required cardioversion and placement of rate control with Cardizem and anticoagulation for stroke prophylaxis. Atrial ablation will be planned for 3 weeks. Pt was DC in improved condition. Labs (last 24 hrs) Laboratory Tests 01/27/18 02:55: White Blood Count 11.2H, Red Blood Count 5.21, Hemoglobin 14.6, Hematocrit 44, Mean Corpuscular Volume 84, Mean Corpuscular Hemoglobin 28, Mean Corpuscular Hemoglobin Concent 33, Red Cell Distribution Width 13.7, Platelet Count 280, Mean Platelet Volume 10.9H, Neutrophils (%) (Auto) 68, Lymphocytes (%) (Auto) 18 , Monocytes (%) (Auto) 12, Eosinophils (%) (Auto) 2, Basophils (%) (Auto) 0, Neutrophils # (Auto) 7.6, Lymphocytes # (Auto) 2.0, Monocytes # (Auto) 1.4H, Eosinophils # (Auto) 0.2, Basophils # (Auto) 0.1, Sodium Level 138, Potassium Level 4.2, Chloride Level 104, Carbon Dioxide Level 23, Anion Gap 11, Blood Urea Nitrogen 15, Creatinine 0.96, Estimat Glomerular Filtration Rate > 60, BUN/ Creatinine Ratio 16, Glucose Level 102, Calcium Level 8.9, Corrected Calcium 9.1 , Phosphorus Level 4.0, Magnesium Level 2.2, Total Bilirubin 0.6, Aspartate Amino Transf (AST/SGOT) 15, Alanine Aminotransferase (ALT/SGPT) 23, Alkaline Phosphatase 91, Total Protein 6.4, Albumin 3.7 Patient resulted labs reviewed. Discussion & Recommendations Discharge Planning: <30 minutes discharge planning Discharge Home Medications: Active Scripts Active Diltiazem 24Hr Cd (Diltiazem HCl) 120 Mg Cap.er.24h 120 Mg PO DAILY Eliquis (Apixaban) 5 Mg Tablet 5 Mg PO BID Reported Men's One Daily (Multivitamin with Minerals) 1 Each Tablet 1 Tab PO DAILY Instructions to patient/family Please see electronic discharge instructions given to patient. Clinical Quality Measures DVT/VTE Risk/Contraindication: Risk Factor Score Per Nursin RFS Level Per Nursing on Admit: 3=High Copy Copies To 1: ANNE-MARIE GUSMAN MD Problem Qualifiers (1) Atrial flutter: Atrial flutter type: typical Qualified Codes: I48.3 - Typical atrial flutter REYNA HINOJOSA DO Jan 27, 2018 12:12
--- NOTE | 2018-01-27 14:17 | Anesthesia-Procedure Note ---
Procedures/Interventions Procedure Start/Stop/Diagnosis Date of Procedure: Jan 27, 2018 Start Time: 11:05 Referring Physician: Dr Coon Preprocedural Diagnosis: Atrial Flutter Brief History Anesthesia Note ([id number]) Called to ICU for sedation/MAC for a CHOLO and cardioversion. Brief history obtained from patient and Dr Coon. NPO status verified. Pt tolerated the procedure well. Stop Time: 11:20 Postprocedural Diagnosis: Sinus Rhythm CHOLO/Cardioversion Anesthesia Type: MAC ASA Class: 3 Medications Versed 2 mg IV and Propofol 120 mg IV in divided doses. Monitors and Equipment: BP Cuff - Left, Continuous EKG, End Tidal CO2, IV, Pulse Oximeter, V Lead EKG CHARANJIT ADRIAN DO Jan 27, 2018 14:17
== END 2018-01-27 16:55 | disposition home or self-care (01) | DRG 310 ==
LOC: UNDOADMIN 15:45 → ICU 15:45
PROVIDERS: ADMIT Internal Medicine; ATTEND Internal Medicine
PROC: 5A2204Z Restoration of Cardiac Rhythm, Single (ICD-10-PCS; principal; 2018-01-27)
DX: I48.3 Typical atrial flutter (principal); I48.91 Unspecified atrial fibrillation; Z85.46 Personal history of malignant neoplasm of prostate; I10 Essential (primary) hypertension; R07.9 Chest pain, unspecified
CPT/HCPCS: 36415; 71045; 80053; 83735; 84100; 85007; 85025; 85027; 87081; 90471; 93306; 93320; 93325

== ENCOUNTER → 2018-02-08 | Day surgery (SDC) | payer BC ==
[~2018-02-08] VITALS: Ht 193 cm; Wt 127.0 kg
[2018-02-08] VITALS (9 sets, daily range): BP systolic 90–116; BP diastolic 60–94
[~2018-02-08] MED LIST: APIX5TAB PO; DILT120C63 PO; FLU QUADRIvalent (5+ YOA) 2018-2019 (AFLURIA) 0.5 ML IM ONE; LIDOCAINE 2% VISCOUS 15 ML UDC ONE; MIDAZOLAM 2 MG/2 ML (VERSED) VIAL ONE; MIDAZOLAM 5 MG/5 ML (VERSED) VIAL ONE; MULT-406 PO; NS IV 1000 ML 1,000 ML IV ONE; NS IV 1000 ML 1,000 ML ONE; proPOfol 200 MG/20 ML (DIPRIVAN) VIAL IV ONE
--- NOTE | 2018-02-08 14:28 | Anesthesia-Procedure Note ---
Procedures/Interventions Procedure Start/Stop/Diagnosis Date of Procedure: Feb 08, 2018 Start Time: 14:20 Referring Physician: Dr Coon Preprocedural Diagnosis: Atrial Flutter Brief History Anesthesia Note ([id number]) Called the director of cardiac cath lab for sedation (MAC) for cardioversion. Brief history obtained from patient and Dr Coon. NPO status verified. Pt tolerated the procedure well. Stop Time: 14:25 Postprocedural Diagnosis: Sinus Rhythm CHOLO/Cardioversion Anesthesia Type: MAC ASA Class: 3 Medications Versed 2 mg IV, Propofol 50 mg IV Monitors and Equipment: BP Cuff - Left, Continuous EKG, End Tidal CO2, IV, Pulse Oximeter CHARANJIT ADRIAN DO Feb 08, 2018 14:28
--- NOTE | 2018-02-08 14:29 | Anesthesia-General Post-Op ---
MAC Patient Condition Mental Status/LOC: Same as Preop Cardiovascular: Satisfactory Nausea/Vomiting: Absent Respiratory: Satisfactory Pain: Controlled Complications: Absent Post Op Complications Complications None Follow Up Care/Instructions Patient Instructions None needed. Anesthesiology Discharge Order Discharge Order Patient is doing well, no complaints, stable vital signs, no apparent adverse anesthesia problems. CHARANJIT ADRIAN DO Feb 08, 2018 14:29
--- NOTE | 2018-02-08 14:37 | Cardioversion ---
Cardioversion PROCEDURE PHYSICIAN: Stacey Coon MD DATE OF PROCEDURE: 02/08/18 DIRECT EXTERNAL ELECTRICAL CARDIOVERSION: Indications: Typical atrial flutter with rapid ventricular rate Preoperative diagnoses: Typical atrial flutter with rapid ventricular rate Postoperative diagnosis: Sinus rhythm, Successful Electrical Cardioversion History: Anesthesia: By Anesthesia services Complications: None Specimen: None Contrast: 0 Flouroscopy: none Procedure Details: The patient was brought the medical lab technician after informed consent was taken, all the risks and complications were explained including the risk of stroke. Electrical cardioversion was carried out with anesthesia support with propofol. 120 joules of synchronized shock was delivered through external patches which promptly restored sinus rhythm. The patient tolerated the procedure well. Conclusions: 1.Successful Cardioversion. 2.Continue oral anticoagulation and rate controlling agent. 3.Follow up in office in 14-21 days. Stacey Coon MD, RS, CCDS Cardiac Electrophysiology Theron COON MD Feb 08, 2018 2:37 pm
--- OUTSIDE RECORDS SUMMARY | 2018-02-08 15:04 | XMS REPORT | Continuity of Care Document ---
Author Author [facility] Organization [facility] Address Unknown Phone Unavailable Allergies Active Description Code Type Severity Reaction Onset Reported/Identified Relationship to Patient Clinical Status Yes NO KNOWN DRUG ALLERGIES UNKNOWN NO KNOWN DRUG ALLERG Yes No Allergy Information Available [id number] Drug Allergy Unknown N/A 2017 Yes No Known Drug Allergies [id number] Drug Allergy Unknown N/A 01/26/2018 Medications Medication Packaging Start Date Stop Date Route Dosage Sig DILTIAZEM BOLUS VIAL INJ 25 MG/5CC (CARDIZEM BOLUS VIAL) MG 01/26/2018 01/26/2018 ONCE&1403 DILTIAZEM BOLUS VIAL INJ 25 MG/5CC (CARDIZEM BOLUS VIAL) MG 01/26/2018 01/26/2018 ONCE&1412 Normal SALINE 0.9 % (NS 100cc) (plain bag) ml 01/26/2018 01/26/2018 ONCE&1418 ENOXAPARIN SYRINGE INJ 100 MG (LOVENOX SYRINGE) MG 01/26/2018 01/26/2018 ONCE&1500 Problems Date Dx Coded Attending Type Code Diagnosis Diagnosed By 01/27/2018 REYNA HINOJOSA DO Ot H91.10 PRESBYCUSIS, UNSPECIFIED EAR 01/27/2018 REYNA HINOJOSA DO Ot I48.3 TYPICAL ATRIAL FLUTTER 01/27/2018 REYNA HINOJOSA DO Ot Z85.46 PERSONAL HISTORY OF MALIGNANT NEOPLASM O 01/27/2018 REYNA HINOJOSA DO Ot I10 ESSENTIAL (PRIMARY) HYPERTENSION 01/27/2018 REYNA HINOJOSA DO Ot I48.3 TYPICAL ATRIAL FLUTTER 01/27/2018 REYNA HINOJOSA DO Ot I48.91 UNSPECIFIED ATRIAL FIBRILLATION 01/27/2018 REYNA HINOJOSA DO Ot R07.9 CHEST PAIN, UNSPECIFIED 01/27/2018 REYNA HINOJOSA DO Ot Z85.46 PERSONAL HISTORY OF MALIGNANT NEOPLASM O Procedures Code Description Performed By Performed On [id number] EPISCOPAL OF CARDIAC RHYTHM, SINGLE 01/27/2018 Results Test Result Range Thyroid Stimulating Hormone - 08/24/17 09:52 TSH 4.06 mIU/mL 0.32-5.00 EKG - 01/26/18 13:38 EKG Complete Thyroid Stimulating Hormone - 01/26/18 13:38 TSH 6.64 mIU/mL 0.32-5.00 Complete blood count (CBC) with automated white blood cell (WBC) differential - 01/26/18 16:52 Blood leukocytes automated count (number/volume) 14.4 10*3/uL 4.3-11.0 Blood erythrocytes automated count (number/volume) 5.43 10*6/uL 4.35-5.85 Venous blood hemoglobin measurement (mass/volume) 15.2 g/dL 13.3-17.7 Blood hematocrit (volume fraction) 46 % 40-54 Automated erythrocyte mean corpuscular volume 84 [foz_us] 80-99 Automated erythrocyte mean corpuscular hemoglobin (mass per erythrocyte) 28 pg 25-34 Automated erythrocyte mean corpuscular hemoglobin concentration measurement ( mass/volume) 33 g/dL 32-36 Automated erythrocyte distribution width ratio 13.6 % 10.0-14.5 Automated blood platelet count (count/volume) 294 10*3/uL 130-400 Automated blood platelet mean volume measurement 10.1 [foz_us] 7.4-10.4 Automated blood neutrophils/100 leukocytes 73 % 42-75 Automated blood lymphocytes/100 leukocytes 16 % 12-44 Blood monocytes/100 leukocytes 9 % 0-12 Automated blood eosinophils/100 leukocytes 1 % 0-10 Automated blood basophils/100 leukocytes 0 % 0-10 Blood neutrophils automated count (number/volume) 10.6 10*3 1.8-7.8 Blood lymphocytes automated count (number/volume) 2.3 10*3 1.0-4.0 Blood monocytes automated count (number/volume) 1.3 10*3 0.0-1.0 Automated eosinophil count 0.2 10*3/uL 0.0-0.3 Automated blood basophil count (count/volume) 0.0 10*3/uL 0.0-0.1 Blood manual differential performed detection - 01/26/18 16:52 Blood monocytes/100 leukocytes 9 % NRG Manual blood segmented neutrophils/100 leukocytes 73 % NRG Blood band neutrophils/100 leukocytes 0 % NRG Manual blood lymphocytes/100 leukocytes 15 % NRG Manual eosinophils/100 leukocytes in nose 1 % NRG Manual blood basophils/100 leukocytes 0 % NRG Blood lymphocytes variant/100 leukocytes 2 % NRG Blood erythrocyte morphology finding identification NORMAL NR Complete blood count (CBC) with automated white blood cell (WBC) differential - 01/27/18 02:55 Blood leukocytes automated count (number/volume) 11.2 10*3/uL 4.3-11.0 Blood erythrocytes automated count (number/volume) 5.21 10*6/uL 4.35-5.85 Venous blood hemoglobin measurement (mass/volume) 14.6 g/dL 13.3-17.7 Blood hematocrit (volume fraction) 44 % 40-54 Automated erythrocyte mean corpuscular volume 84 [foz_us] 80-99 Automated erythrocyte mean corpuscular hemoglobin (mass per erythrocyte) 28 pg 25-34 Automated erythrocyte mean corpuscular hemoglobin concentration measurement ( mass/volume) 33 g/dL 32-36 Automated erythrocyte distribution width ratio 13.7 % 10.0-14.5 Automated blood platelet count (count/volume) 280 10*3/uL 130-400 Automated blood platelet mean volume measurement 10.9 [foz_us] 7.4-10.4 Automated blood neutrophils/100 leukocytes 68 % 42-75 Automated blood lymphocytes/100 leukocytes 18 % 12-44 Blood monocytes/100 leukocytes 12 % 0-12 Automated blood eosinophils/100 leukocytes 2 % 0-10 Automated blood basophils/100 leukocytes 0 % 0-10 Blood neutrophils automated count (number/volume) 7.6 10*3 1.8-7.8 Blood lymphocytes automated count (number/volume) 2.0 10*3 1.0-4.0 Blood monocytes automated count (number/volume) 1.4 10*3 0.0-1.0 Automated eosinophil count 0.2 10*3/uL 0.0-0.3 Automated blood basophil count (count/volume) 0.1 10*3/uL 0.0-0.1 Comprehensive metabolic panel - 01/27/18 02:55 Serum or plasma sodium measurement (moles/volume) 138 mmol/L 135-145 Serum or plasma potassium measurement (moles/volume) 4.2 mmol/L 3.6-5.0 Serum or plasma chloride measurement (moles/volume) 104 mmol/L 98-107 Carbon dioxide 23 mmol/L 21-32 Serum or plasma anion gap determination (moles/volume) 11 mmol/L 5-14 Serum or plasma urea nitrogen measurement (mass/volume) 15 mg/dL 7-18 Serum or plasma creatinine measurement (mass/volume) 0.96 mg/dL 0.60-1.30 Serum or plasma urea nitrogen/creatinine mass ratio 16 NRG Serum or plasma creatinine measurement with calculation of estimated glomerular filtration rate > NRG Serum or plasma glucose measurement (mass/volume) 102 mg/dL 70-105 Serum or plasma calcium measurement (mass/volume) 8.9 mg/dL 8.5-10.1 Serum or plasma total bilirubin measurement (mass/volume) 0.6 mg/dL 0.1-1.0 Serum or plasma alkaline phosphatase measurement (enzymatic activity/volume) 91 U/L 40-136 Serum or plasma aspartate aminotransferase measurement (enzymatic activity/ volume) 15 U/L 5-34 Serum or plasma alanine aminotransferase measurement (enzymatic activity/volume ) 23 U/L 0-55 Serum or plasma protein measurement (mass/volume) 6.4 g/dL 6.4-8.2 Serum or plasma albumin measurement (mass/volume) 3.7 g/dL 3.2-4.5 CALCIUM CORRECTED 9.1 mg/dL 8.5-10.1 Serum or plasma phosphate measurement (mass/volume) - 01/27/18 02:55 Serum or plasma phosphate measurement (mass/volume) 4.0 mg/dL 2.3-4.7 Magnesium - 01/27/18 02:55 Magnesium 2.2 mg/dL 1.8-2.4 Encounters ACCT No. Visit Date/Time Discharge Status Pt. Type Provider Facility Loc./Unit Complaint [id number] 01/26/2018 15:45:00 01/27/2018 16:55:00 DIS Inpatient REYNA HINOJOSA DO [facility] ICU A FLUTTER [id number] 09/12/2013 10:41:00 09/12/2013 23:59:59 CLS Outpatient [id number] 02/08/2018 13:04:00 ACT Outpatient Theron MONTILLA MD [facility] CATH ATRIAL FLUTTER WITH RVR [id number] 01/26/2018 13:30:00 01/26/2018 15:15:00 DIS Outpatient Shahana Tripp [facility] [id number] 08/24/2017 09:52:00 08/24/2017 23:59:00 DIS Outpatient Amanda Dorman [id number] 01/26/2018 14:04:01 Document Registration
== END | disposition home or self-care (01) ==
LOC: CATH 13:04
PROVIDERS: ATTEND Internal Medicine Interventional Cardiology
DX: I48.3 Typical atrial flutter (principal); I10 Essential (primary) hypertension; Z79.01 Long term (current) use of anticoagulants; Z79.899 Other long term (current) drug therapy
CPT/HCPCS: 92960; 93005

== ENCOUNTER 2018-02-16 05:34 | Outpatient (CLI) | payer BC ==
[~2018-02-16] VITALS: Ht 193 cm; Wt 127.0 kg
[~2018-02-16 05:34] MED LIST changes: -FLU QUADRIvalent (5+ YOA) 2018-2019 (AFLURIA) 0.5 ML IM ONE; -LIDOCAINE 2% VISCOUS 15 ML UDC ONE; -MIDAZOLAM 2 MG/2 ML (VERSED) VIAL ONE; -MIDAZOLAM 5 MG/5 ML (VERSED) VIAL ONE; -NS IV 1000 ML 1,000 ML IV ONE; -NS IV 1000 ML 1,000 ML ONE; -proPOfol 200 MG/20 ML (DIPRIVAN) VIAL IV ONE
== END 2018-02-16 14:14 | disposition home or self-care (01) ==
LOC: PREOP 05:34
PROVIDERS: ATTEND Internal Medicine Interventional Cardiology
DX: Z01.818 Encounter for other preprocedural examination (principal)

== ENCOUNTER 2018-02-20 06:01 | Day surgery (SDC) | payer BC ==
[~2018-02-20] VITALS: Ht 193 cm; Wt 128.4 kg
[2018-02-20] MEDS ORDERED: NS IV 1000 ML 1,000 ML IV SCH ×2 (06:34→10:34)
[2018-02-20] MEDS ORDERED: LIDOCAINE 1% INJ 20 ML 20 ML VIAL ONE (06:36)
[2018-02-20] MEDS ORDERED: ISOPROTERENOL 0.2 MG/100 ML D5W IV ONE (06:45)
--- OUTSIDE RECORDS SUMMARY | 2018-02-20 06:47 | XMS REPORT | Continuity of Care Document ---
Author Author [facility] Organization [facility] Address Unknown Phone Unavailable Allergies Active Description Code Type Severity Reaction Onset Reported/Identified Relationship to Patient Clinical Status Yes NO KNOWN DRUG ALLERGIES UNKNOWN NO KNOWN DRUG ALLERG Yes No Allergy Information Available [id number] Drug Allergy Unknown N/A 2017 Yes No Known Drug Allergies [id number] Drug Allergy Unknown N/A 01/26/2018 Medications Medication [...] Coded Attending Type Code Diagnosis Diagnosed By 01/26/2018 Shahana Tripp 427.32 ATRIAL FLUTTER 01/26/2018 Shahana Tripp I48.4 ATYPICAL ATRIAL FLUTTER 01/27/2018 REYNA HINOJOSA DO Ot H91.10 PRESBYCUSIS, UNSPECIFIED EAR 01/27/2018 CARYL HINOJOSA DOI Ot I48.3 TYPICAL ATRIAL FLUTTER 01/27/2018 REYNA HINOJOSA DO Ot Z85.46 PERSONAL HISTORY OF MALIGNANT NEOPLASM O 01/27/2018 CARYL HINOJOSA DOI Ot I10 ESSENTIAL (PRIMARY) HYPERTENSION 01/27/2018 MICAELA PARHAM ERYNA Ot I48.3 TYPICAL ATRIAL FLUTTER 01/27/2018 MICAELA PARHAM REYNA Ot I48.91 UNSPECIFIED ATRIAL FIBRILLATION 01/27/2018 REYNA HINOJOSA DO Ot R07.9 CHEST PAIN, UNSPECIFIED 01/27/2018 REYNA HINOJOSA DO Ot Z85.46 PERSONAL HISTORY OF MALIGNANT NEOPLASM O Procedures Code Description Performed By Performed On [id number] CHRISTIAN OF CARDIAC RHYTHM, SINGLE 01/27/2018 Results Test [...] NRG Blood erythrocyte morphology finding identification NORMAL NRG Complete blood count (CBC) with automated white [...] Status Pt. Type Provider Facility Loc./Unit Complaint [id number] 02/08/2018 13:04:00 02/08/2018 23:59:59 CLS Outpatient Theron MONTILLA MD [facility] CATH ATRIAL FLUTTER WITH RVR [id number] 01/26/2018 15:45:00 01/27/2018 16:55:00 DIS Inpatient REYNA HINOJOSA DO [facility] ICU A FLUTTER [id number] 09/12/2013 10:41:00 09/12/2013 23:59:59 CLS Outpatient [id number] 01/26/2018 13:30:00 01/26/2018 15:15:00 DIS Outpatient Tripp, [facility] [id number] 08/24/2017 09:52:00 08/24/2017 23:59:00 DIS Outpatient Amanda Dorman [id number] 01/26/2018 14:04:01 Document Registration
[2018-02-20 06:48] VITALS: BP 145/107
[2018-02-20 06:56] LABS: HEMOGLOBIN 14.9 G/DL (13.3-17.7); RED BLOOD COUNT 5.48 10^6/uL (4.35-5.85); RED CELL DISTRIBUTION WIDTH 13.9 % (10.0-14.5)
[2018-02-20 07:10] LABS: INR 1.1 (0.8-1.4); PROTHROMBIN TIME PATIENT 14.1 SEC (12.2-14.7)
[2018-02-20 07:15] LABS: ALANINE AMINOTRANSFERASE 22 U/L (0-55); ALKALINE PHOSPHATASE 90 U/L (40-136); BILIRUBIN,TOTAL 0.4 MG/DL (0.1-1.0); BUN/CREATININE RATIO 20; CARBON DIOXIDE 23 MMOL/L (21-32); CHLORIDE 107 MMOL/L (98-107); CREATININE SERUM 1.03 MG/DL (0.60-1.30); GFR ESTIMATED > 60; GLUCOSE 119 MG/DL (70-105); POTASSIUM 4.1 MMOL/L (3.6-5.0); SODIUM 139 MMOL/L (135-145); TOTAL PROTEIN 6.3 GM/DL (6.4-8.2)
[2018-02-20] MEDS ORDERED: proPOfol 200 MG/20 ML (DIPRIVAN) VIAL IV ONE (07:22)
[2018-02-20] MEDS ORDERED: ONDANSETRON 4 MG/2 ML (SDV) Z0FRAN ONE (07:23)
[2018-02-20] MEDS ORDERED: DEXAMETHASONE 10 MG/ML (DECADRON) 1 ML VIAL ONE (07:23)
[2018-02-20] MEDS ORDERED: fentaNYL INJECTION 100 MCG/2 ML AMP ONE (07:23)
[2018-02-20] MEDS ORDERED: MIDAZOLAM 2 MG/2 ML (VERSED) VIAL ONE (07:23)
[2018-02-20] MEDS ORDERED: SEVOFLURANE (ULTANE) 15 ML INHAL SOLN ONE ×2 (07:23→10:52)
[2018-02-20] MEDS ORDERED: FLU QUADRIvalent (5+ YOA) 2018-2019 (AFLURIA) 0.5 ML IM ONE ×2 (07:30→14:00)
[2018-02-20] MEDS ORDERED: HEParin (CATH LAB) 2,000 ML IV ONE (07:40)
--- NOTE | 2018-02-20 10:32 | Electrophysiology Procedure ---
EP Procedure DATE OF SERVICE:02/20/18 REFERRING PHYSICIAN: Dr Amanda King CARDIAC ROLLING MACHINE OPERATOR AUTOMATIC: Stacey Coon MD, [facility], [facility]. INDICATION: Typical atrial flutter - CTI dependent. PREOPERATIVE DIAGNOSIS:Typical atrial flutter - CTI dependent. POSTOPERATIVE DIAGNOSES: Successful cavotricuspid isthmus ablation. HISTORY: This is a 62 year old gentleman who presented to our hospital with typical atrial flutter requiring cardioversion. The patient is planned for comprehensive EP study and ablation. PROCEDURE PERFORMED: 1. Comprehensive EP study with induction. 2. Fluoroscopy. 3. CS pacing. 4. Drug infusion. 5. Ablation of typical atrial flutter. 6. Comprehensive 3D mapping with the carto system. COMPLICATION: None. ESTIMATED BLOOD LOSS: 10 mL. CONTRAST USED: None. FLUOROSCOPY TIME: 13.8 minutes. FLUOROSCOPY DOSE: 253 mgy. SPECIMENS: None. ANESTHESIA: Done by our anesthesia colleagues. ANTICOAGULATION: On oral anticoagulation. PROCEDURE IN DETAIL: After informed consent was taken, the patient was brought to the EP lab. Anesthesia was provided by our anesthesia colleagues. The patient was draped and prepped in the usual sterile fashion. The patient presented to the EP lab in sinus rhythm. Access was gained in the right femoral vein with a 6-[place]izen [place] and an 8-[place] sheath. Left access in left femoral vein was gained with 5-[place]izen [place] and 6-[place] sheath respectively. High right atrial catheter was an ablation catheter, right ventricular catheter was placed, his catheter and the CS catheter were also placed. A comprehensive EP study was done including a CS pacing/left atrial pacing. Dual AV node physiology only noted while performing retrograde wenkebache. Single ventricular Echos noted. Concentric atrial activation on V pacing. PSVT was not induced. Typical atrial flutter was not induced with rapid atrial pacing with and without Isuprel infusion. A 3D electroanatomic mapping was done with the carto system. Ablation was performed in the cavotricuspid isthmus.CS pacing and pacing from the ablation catheter at different positions on the lateral side of the ablation line were used to verify bidirectional block. We then waited for 30 minutes and rechecked and confirmed bidirectional block.Isuprel was given post-procedure, however, we could not induce atrial flutter.The patienttolerated the procedure well and did not have any complication. The patientleft the lab in sinus rhythm. Total ablation time was 14 minutes and 18 seconds. MEASUREMENTS/EP STUDY: AH interval 844 ms. MN interval 225 ms. QRS duration 65 ms. QT interval 369 ms. R-R interval 856 ms. AH Interval 109 ms. HV Interval 36 ms. AV Cqcevespay446 ms. retrograde Fvzdhhgovh682 ms. Atrial DEN442/260 ms. Ventricular ERP 600/280 ms. Fast pathway ERP was 600/460 ms. PLAN: The patient will be observed overnight and will be discharged home tomorrow with precise followup instructions. Stacey Coon MD, [facility], [facility] Cardiac Electrophysiology Theron COON MD Feb 20, 2018 10:32
[2018-02-20] MEDS ORDERED: PATIENT MAY USE OWN MEDS, ALL PO SCH (10:45)
[2018-02-20] MEDS ORDERED: morphine INJ 10 MG/ML 1ML (SYR OR VIAL) IVP ONE (11:15)
[2018-02-20] MEDS ORDERED: ONDANSETRON 4 MG/2 ML (SDV) Z0FRAN IVP PRN (11:15)
[2018-02-20 12:45] VITALS: BP 143/87
--- NOTE | 2018-02-20 13:49 | Anesthesia-General Post-Op ---
General Patient Condition Mental Status/LOC: Same as Preop Cardiovascular: Satisfactory Nausea/Vomiting: Absent Respiratory: Satisfactory Pain: Controlled Complications: Absent Post Op Complications Complications None Follow Up Care/Instructions Patient Instructions None needed. Anesthesia/Patient Condition Patient Condition Patient is doing well, no complaints, stable vital signs, no apparent adverse anesthesia problems. No complications reported per nursing. KARRIE JULIAN CRNA Feb 20, 2018 13:49
[2018-02-20 14:00] VITALS: BP 121/86
[2018-02-20 17:25] VITALS: BP 128/76
[2018-02-20 20:20] VITALS: BP 148/82
[2018-02-20] MEDS: APIXABAN 5 MG (ELIQUIS) TABLET PO SCH (20:40)
[2018-02-21] VITALS: BP 126/68
[2018-02-21 04:00] VITALS: BP 113/50
[2018-02-21 06:40] LABS: HEMOGLOBIN 14.2 G/DL (13.3-17.7); MEAN PLATELET VOLUME 10.9 FL (7.4-10.4); RED BLOOD COUNT 5.15 10^6/uL (4.35-5.85); RED CELL DISTRIBUTION WIDTH 14.2 % (10.0-14.5); WHITE BLOOD COUNT 15.4 10^3/uL (4.3-11.0)
[2018-02-21 07:00] LABS: BUN/CREATININE RATIO 20; CALCIUM 8.7 MG/DL (8.5-10.1); CARBON DIOXIDE 21 MMOL/L (21-32); CHLORIDE 109 MMOL/L (98-107); CREATININE SERUM 0.85 MG/DL (0.60-1.30); GFR ESTIMATED > 60; GLUCOSE 133 MG/DL (70-105); POTASSIUM 4.2 MMOL/L (3.6-5.0); SODIUM 139 MMOL/L (135-145)
[2018-02-21] MEDS: APIXABAN 5 MG (ELIQUIS) TABLET PO SCH (08:09)
[2018-02-21 08:51] VITALS: BP 143/91
--- NOTE | 2018-02-21 11:35 | Cardiology Discharge Summary ---
Diagnosis/Chief Complaint Date of Admission 02/20/2018 Date of Discharge 02/21/2018 Admission Diagnosis Typical atrial flutter Final/Discharge Diagnosis Successful typical atrial flutter ablation Chief Complaint/HPI Chief Complaint/HPI This is a 62-year-old gentleman with symptomatic typical atrial flutter requiring cardioversion. EP study with typical atrial flutter ablation was recommended. Discharge Summary Procedures Successful typical atrial flutter ablation. Discharge Physical Examination Normal cardiovascular and respiratory examination. Hospital Course Unremarkable. Pending Labs Laboratory Tests 02/21/18 05:45: White Blood Count 15.4, Red Blood Count 5.15, Hemoglobin 14.2, Hematocrit 43, Mean Corpuscular Volume 83, Mean Corpuscular Hemoglobin 28, Mean Corpuscular Hemoglobin Concent 33, Red Cell Distribution Width 14.2, Platelet Count 269, Mean Platelet Volume 10.9, Sodium Level 139, Potassium Level 4.2, Chloride Level 109, Carbon Dioxide Level 21, Anion Gap 9, Blood Urea Nitrogen 17, Creatinine 0.85, Estimat Glomerular Filtration Rate > 60, BUN/Creatinine Ratio 20, Glucose Level 133, Calcium Level 8.7 Discussion & Recommendations Discussion Discharge instructions were discussed at length with the patient. Discharge took over 30 minutes to complete. Dicharge Diet: Regular Diet Activity as Tolerated: Yes Home Medications Reviewed patient Home Medication Reconciliation performed by pharmacy medication reconciliations lead manufacturing technician and/or nursing. Patients Allergies have been reviewed. Discharge Home Medications: Reviewed and agree with Discharge Medication list on patient's Discharge Instruction sheet Condition at discharge Stable. Instructions to patient/family Discharge instructions were discussed at length with the patient and family. Clinical Quality Measures DVT/VTE Risk/Contraindication: Risk Factor Score Per Nursin RFS Level Per Nursing on Admit: 2=Moderate Theron MONTILLA MD Feb 21, 2018 11:35
== END 2018-02-21 11:00 | disposition home or self-care (01) ==
LOC: CATH 06:01 → ICU 12:10 → 4TH 18:35 → CATH 02-21 11:00
PROVIDERS: ATTEND Internal Medicine Interventional Cardiology
DX: I48.3 Typical atrial flutter (principal); I10 Essential (primary) hypertension; Z11.2 Encounter for screening for other bacterial diseases; R06.02 Shortness of breath; Z79.01 Long term (current) use of anticoagulants; Z79.899 Other long term (current) drug therapy; E66.9 Obesity, unspecified; Z68.34 Body mass index [BMI] 34.0-34.9, adult
CPT/HCPCS: 36415; 80048; 80053; 85027; 85610; 87081; 93005; 93613; 93621; 93623; 93653

== ENCOUNTER 2018-05-05 09:30 | Outpatient (RCR) | payer BC ==
[~2018-05-05 09:30] MED LIST changes: -DILT120C63 PO; +DILT120C94 PO
== END 2018-07-10 | disposition home or self-care (01) ==
LOC: CARD 09:30
PROVIDERS: ATTEND Internal Medicine Interventional Cardiology
DX: I48.3 Typical atrial flutter (principal)
CPT/HCPCS: 93270

== ENCOUNTER → 2022-01-26 | Outpatient (CLI) | payer BC ==
[~2022-01-26] MED LIST changes: +DILT120C88 PO; -DILT120C94 PO
== END ==
LOC: CARD 09:00
PROVIDERS: ATTEND Internal Medicine Cardiovascular Disease
DX: I35.1 Nonrheumatic aortic (valve) insufficiency (principal); I51.7 Cardiomegaly; I48.0 Paroxysmal atrial fibrillation
CPT/HCPCS: 93306

== ENCOUNTER → 2022-01-28 | Outpatient (CLI) | payer BC ==
[~2022-01-28] MED LIST changes: +REGADENOSON 0.4 MG/5 ML SYR (LEXISCAN) IV ONE
[2022-01-28] MEDS: CATHETER FLUSH 10 ML SYR IVP PRN ×2 (08:07→09:13)
[2022-01-28 09:12] VITALS: BP 155/84
--- NOTE | 2022-01-28 17:57 | NUCLEAR STRESS TEST ---
REGADENOSON NUCLEAR STRESS Date of procedure: 01/28/2022. Primary care provider: Amanda Dorman MD Admitting physician: Ector Manzanares Jr., MD. INDICATION: Paroxysmal atrial fibrillation. BASELINE ELECTROCARDIOGRAM: Sinus rhythm with right bundle branch block. STRESS TEST PROCEDURE: The patient was administered 0.4 mg of intravenous Regadenoson. The resting heart rate was 63 bpm and the peak heart rate was 94 bpm. The resting blood pressure was 155/84 mmHg and the minimum blood pressure was 125/85 mmHg. This represents a normal heart rate and a normal blood pressure response to Regadenoson. The test was stopped due to the protocol. There was no chest discomfort during the test. There were no arrhythmias during the test. There were no significant stress induced electrocardiogram changes. NUCLEAR PROCEDURE: The patient was administered 8.7 mCi of intravenous technetium 99m Tetrofosmin at rest for the rest images. The patient was subsequently administered 25.1 mCi of intravenous technetium 99m Tetrofosmin at peak stress for the stress images. Following an appropriate wait after each injection, imaging was obtained. The images were subsequently processed and reformatted in the usual views. Gated imaging was obtained. The image quality was adequate with a mild degree of gastrointestinal attenuation and vertical motion artifact. CT attenuation correction was used as a adjunct to standard imaging. Both the corrected and uncorrected images were reviewed for interpretation. NUCLEAR RESULTS: There was a small, moderate intensity, reversible mid to distal anterior defect with a small amount of inducible ischemia with a summed stress score of 6 and a summed difference score of 6. There was normal left ventricular chamber size with an end-diastolic volume of 73 mL and an end- systolic volume of 25 mL. There was no evidence of transient ischemic dilatation. The TID ratio was 1.11. There was normal wall motion in all segments with a calculated ejection fraction of 66%. IMPRESSION: 1. Normal heart rate and blood pressure response to regadenoson. 2. There was no chest discomfort, arrhythmias, or electrocardiogram changes during the test. 3. There was a small, moderate intensity, reversible mid to distal anterior defect with a small amount of inducible ischemia with a summed stress score of 6 and a summed difference score of 6. 4. There was normal wall motion in all segments with a calculated ejection fraction of 66%. 5. This is an abnormal result although represents a low risk for possible future coronary ischemic events. Certain portions of this document may have been dictated utilizing voice recognition technology. Inherent to this technology, typographical and grammatical errors may exist. As much as I am diligent to identify and correct these mistakes, some errors may remain in the document. ECTOR MANZANARES JR, MD Jan 28, 2022 17:57
== END ==
LOC: CARD 07:44
PROVIDERS: ATTEND Internal Medicine Cardiovascular Disease
DX: I25.5 Ischemic cardiomyopathy (principal); I48.0 Paroxysmal atrial fibrillation
CPT/HCPCS: 78452; 93017; A9502